=== PATIENT | female | born 1960 | race Caucasian/White ===

== ENCOUNTER 2017-01-21 01:18 | Inpatient (IN) | payer OTHER ==
[2017-01-21] VITALS (13 sets, daily range): BP systolic 87–154; BP diastolic 36–64
[~2017-01-21] VITALS: Ht 165.1 cm; Wt 97.1 kg
[2017-01-21 02:31] LABS: UA SPECIFIC GRAVITY 1.025 (1.005-1.035); microscopic required? YES; urine erythrocyte 3+ (NEGATIVE)
[2017-01-21 02:31] LABS: BASOPHIL % 0.9 % (0-2); PLATELET COUNT 324 x10^3mcL (130-400)
[2017-01-21 02:41] LABS: CALCIUM 8.3 mg/dL (8.5-10.1); CARBON DIOXIDE 21.7 mmol/L (21-32); CREATININE SERUM 1.1 mg/dL (0.6-1.0); POTASSIUM SERUM 3.4 mmol/L (3.5-5.1)
[2017-01-21 02:45] LABS: ALBUMIN 3.5 g/dL (3.4-5.0); BILIRUBIN TOTAL 0.69 mg/dL (0.20-1.00); TOTAL PROTEIN, SERUM 7.6 g/dL (6.4-8.2)
[2017-01-21] MEDS ORDERED: ZESTRIL20 MG PO (04:23)
[2017-01-21] MEDS ORDERED: GLUCOPHAGE XR500 MG PO (04:24)
[2017-01-21] MEDS ORDERED: LEVOTHYROXIN0.025 M2 PO (04:24)
[2017-01-21 04:44] LABS: T3 TOTAL 0.83 ng/mL
[2017-01-21 04:51] LABS: AMPHETAMINE QUAL UR NONE DETECTED (NEG <=1000)
[2017-01-21 04:55] LABS: CHOLESTEROL/HDL RATIO 2.1; MAGNESIUM 1.4 mg/dL (1.8-2.4); PHOSPHOROUS 3.5 mg/dL (2.5-4.9)
[2017-01-21 05:05] LABS: FREE T4 1.25 ng/dL (0.76-1.46); FREE THYROXINE INDEX 3.7 ug/dL (1.4-4.5); T4(THYROXINE) 9.7 ug/dL (4.7-13.3)
[2017-01-21 13:12] LABS: BASOPHIL % 0.2 % (0-2); PLATELET COUNT 319 x10^3mcL (130-400); RED CELL DISTRIBUTION WIDTH 16.1 % (11.5-14.5)
[2017-01-21 13:13] LABS: rbc morphology (normal/abnorm) ABNORMAL (NORMAL)
[2017-01-22 05:59] LABS: PLATELET COUNT 196 x10^3mcL (130-400)
[2017-01-22 06:09] LABS: CALCIUM 7.2 mg/dL (8.5-10.1); CARBON DIOXIDE 20.5 mmol/L (21-32); CREATININE SERUM 1.5 mg/dL (0.6-1.0); MAGNESIUM 1.6 mg/dL (1.8-2.4); PHOSPHOROUS 3.9 mg/dL (2.5-4.9); POTASSIUM SERUM 3.7 mmol/L (3.5-5.1)
[2017-01-22 07:32] LABS: RED CELL DISTRIBUTION WIDTH 15.7 % (11.5-14.5)
[2017-01-22 08:00] VITALS: BP 113/69
[2017-01-22 10:28] LABS: BAND NEUTROPHIL 29 % (0-10); BASOPHIL 0 % (0-2); MONOCYTE 1 % (0-7); SEGMENTED NEUTROPHILS 70 % (37-75)
[2017-01-22 10:31] LABS: PLATELET MORPHOLOGY PLATELETS DECREASED; rbc morphology (normal/abnorm) ABNORMAL (NORMAL)
[2017-01-22 13:39] VITALS: BP 108/69
[2017-01-22 16:59] VITALS: Ht 165.1 cm; Wt 97.1 kg
[2017-01-22 18:19] VITALS: BP 91/52
[2017-01-22 18:32] VITALS: BP 106/57
[2017-01-22 18:36] LABS: PLATELET COUNT 201 x10^3mcL (130-400)
[2017-01-22 18:49] LABS: RED CELL DISTRIBUTION WIDTH 16.4 % (11.5-14.5)
[2017-01-22 19:21] LABS: BAND NEUTROPHIL 10 % (0-10); BASOPHIL 0 % (0-2); METAMYELOCTE 1 % (0-2); MONOCYTE 5 % (0-7); SEGMENTED NEUTROPHILS 78 % (37-75)
[2017-01-22 19:23] LABS: PLATELET MORPHOLOGY PLATELETS NORMAL; rbc morphology (normal/abnorm) ABNORMAL (NORMAL); target cell (codocyte) 2+
[2017-01-22 20:44] VITALS: BP 110/63
[2017-01-23 05:47] VITALS: BP 144/81
[2017-01-23 06:12] LABS: BASOPHIL % 0.1 % (0-2); PLATELET COUNT 203 x10^3mcL (130-400)
[2017-01-23 06:30] LABS: RED CELL DISTRIBUTION WIDTH 16.4 % (11.5-14.5)
[2017-01-23 07:14] LABS: CHLORIDE SERUM 109 mmol/L (98-107); POTASSIUM SERUM 3.7 mmol/L (3.5-5.1); SODIUM SERUM 140 mmol/L (136-145)
[2017-01-23 07:15] LABS: CALCIUM 7.3 mg/dL (8.5-10.1); CARBON DIOXIDE 22.3 mmol/L (21-32); CREATININE SERUM 0.9 mg/dL (0.6-1.0); GFR1 > 60 mL/min; GLUCOSE SERUM 104 mg/dL (74-106); MAGNESIUM 2.1 mg/dL (1.8-2.4); PHOSPHOROUS 2.3 mg/dL (2.5-4.9)
[2017-01-23 18:17] VITALS: BP 133/71
[2017-01-23 21:08] VITALS: BP 156/85
[2017-01-24 06:09] VITALS: BP 155/83
[2017-01-24 08:00] LABS: CALCIUM 7.6 mg/dL (8.5-10.1); CARBON DIOXIDE 22.5 mmol/L (21-32); CHLORIDE SERUM 110 mmol/L (98-107); CREATININE SERUM 0.7 mg/dL (0.6-1.0); GFR1 > 60 mL/min; GLUCOSE SERUM 122 mg/dL (74-106); PHOSPHOROUS 2.3 mg/dL (2.5-4.9); POTASSIUM SERUM 3.5 mmol/L (3.5-5.1); SODIUM SERUM 143 mmol/L (136-145)
[2017-01-24 08:03] LABS: PLATELET COUNT 230 x10^3mcL (130-400); RED CELL DISTRIBUTION WIDTH 16.5 % (11.5-14.5)
[2017-01-24 08:47] LABS: BAND NEUTROPHIL 4 % (0-10); BASOPHIL 0 % (0-2); MONOCYTE 6 % (0-7); SEGMENTED NEUTROPHILS 83 % (37-75)
[2017-01-24 08:48] LABS: PLATELET MORPHOLOGY PLATELETS NORMAL; rbc morphology (normal/abnorm) ABNORMAL (NORMAL)
[2017-01-24 09:01] VITALS: BP 153/82
[2017-01-24] MEDS ORDERED: ROC1I IV (15:04)
[2017-01-24] MEDS ORDERED: FLO4 PO (15:05)
[2017-01-24] MEDS ORDERED: FERRLECIT62.5 MG/5 IV (15:07)
[2017-01-24] MEDS ORDERED: APAP/HYDROCODON1 T13 PO (15:07)
[2017-01-24] MEDS ORDERED: TYL325 PO (15:08)
[2017-01-24] MEDS ORDERED: MOR2I IV (15:08)
[2017-01-24] MEDS ORDERED: BG FS (15:09)
[2017-01-24] MEDS ORDERED: OSCD PO (15:10)
[2017-01-24] MEDS ORDERED: NPHOS PO (15:10)
[2017-01-24] MEDS ORDERED: COL100 PO (15:12)
[2017-01-24] MEDS ORDERED: DEXPF IV (15:12)
[2017-01-24] MEDS ORDERED: LAC PO (15:13)
[2017-01-24] MEDS ORDERED: ZOFI IV (15:13)
[2017-01-24] MEDS ORDERED: GLU500 PO (15:14)
[2017-01-24] MEDS ORDERED: HUMULIN R100 U/1 M1 SC (15:15)
[2017-01-24] MEDS ORDERED: ZES20 PO (15:16)
[2017-01-24] MEDS ORDERED: SYN25 PO (15:16)
[2017-01-24 15:26] VITALS: BP 152/82
== END 2017-01-24 17:26 | disposition short-term general hospital (02) | DRG 871 ==
LOC: ED 01:18 → DU 04:04 → MU 01-23 15:42
PROVIDERS: Emergency Medicine; Radiology Diagnostic Radiology; Student in an Organized Health Care Education/Training Program; ADMIT Family Medicine
PROC: 0T913ZZ Drainage of Left Kidney, Percutaneous Approach (ICD-10-PCS; principal; 2017-01-21 14:30)
DX: A41.9 Sepsis, unspecified organism (principal); R65.21 Severe sepsis with septic shock; N17.0 Acute kidney failure with tubular necrosis; N13.2 Hydronephrosis with renal and ureteral calculous obstruction; E87.2 Acidosis; N39.0 Urinary tract infection, site not specified; E87.6 Hypokalemia; Z88.2 Allergy status to sulfonamides; I10 Essential (primary) hypertension; E03.9 Hypothyroidism, unspecified; E11.65 Type 2 diabetes mellitus with hyperglycemia; E83.42 Hypomagnesemia; Z53.29 Procedure and treatment not carried out because of patient's decision for other reasons; D64.9 Anemia, unspecified; E83.51 Hypocalcemia; E87.8 Other disorders of electrolyte and fluid balance, not elsewhere classified; E83.39 Other disorders of phosphorus metabolism; E66.9 Obesity, unspecified; Z68.35 Body mass index [BMI] 35.0-35.9, adult
CPT/HCPCS: 36600; 82962; 84439; C1729; C1769; C1887; J0696; J1170; J1885; J1956; J2001; J2060; J2250; J2310; J2405; J2916; J3010; J3475; J3490; J7030; J7040; J7042; Q0092; Q0162; Q9967